=== PATIENT | male | born 1985 | race Caucasian/White ===

== ENCOUNTER 2017-10-08 17:49 | Emergency (ER) | payer OTHER ==
[~2017-10-08] VITALS: Ht 195.6 cm; Wt 93.0 kg
[~2017-10-08 17:49] MED LIST: DILA100C
[2017-10-08 17:57] VITALS: BP 157/77; PULSE 99; RESP 16; TEMP 97.9; O2SAT 97
--- NOTE | 2017-10-08 18:25 | PD ---
HPI Chief Complaint: Respiratory Symptoms Time Seen by Provider: 18:09 Travel History International Travel<30 days: No Contact w/Intl Traveler<30days: No Traveled to known affect area: No History of Present Illness HPI 31-year-old male presents emergency department for evaluation of chest discomfort and shortness of breath that started this morning. 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 Says he wore a protective mask but the mask did not provide adequate coverage and he actually became high off of the fumes. He did not come to the ED this morning because he felt too 'high' to drive. He presents now with the sensation of 'burning' in his chest with associated shortness of breath. Says he has not improved but denies worsening of his condition. Denies chronic medical issues or complaints. PFSH Past Medical History Medical History: Denies Significant Hx Blood Disorders: No Cancer: No Cardiovascular Problems: No Chemotherapy: No Diminished Hearing: No Endocrine: No Gastrointestinal Disorders: Yes Genitourinary: No Headaches: Yes Immune Disorder: No Musculoskeletal: No Psychiatric: No Respiratory: No Immunizations Current: Yes Radiation Therapy: No Seizures: Yes Tetanus Vaccination: < 5 Years Influenza Vaccination: No Past Surgical History Surgical History: No Previous Surgery AICD: No Joint Replacement: No Pacemaker: No Social History Alcohol Use: No Tobacco Use: No (1/2 PPD) Substance Use: No Allergies-Medications (Allergen,Severity, Reaction): Coded Allergies: lactose (Unverified Allergy, Severe, 10/08/17) Reported Meds & Prescriptions Reported Meds & Active Scripts Active Proventil Hfa 6.7 GM Inh (Albuterol Sulfate) 90 Mcg/Act Aer 2 Puff INH Q4-6H PRN Review of Systems Except as stated in HPI: all other systems reviewed are Neg Physical Exam Narrative GENERAL: Well-nourished, well-developed patient, in NAD. chemical odor notable with patient respirations SKIN: Focused skin assessment warm/dry. No rashes or lesions. HEAD: Normocephalic. Atraumatic. EYES: No scleral icterus. No injection or drainage. PERRLA, EOMI THROAT: No pharyngeal injection, exudates, or tonsillar hypertrophy. Airway is patent. NECK: Supple, trachea midline. No JVD or lymphadenopathy. No meningismus. CARDIOVASCULAR: Regular rate and rhythm without murmurs, gallops, or rubs. RESPIRATORY: Breath sounds equal bilaterally. No accessory muscle use. No rales or rhonchi. Occasional wheeze MUSCULOSKELETAL: No cyanosis, or edema. BACK: Nontender without obvious deformity. No CVA tenderness. Data Data Last Documented VS Vital Signs Date Time Temp Pulse Resp B/P (MAP) Pulse Ox O2 Delivery O2 Flow Rate FiO2 10/08/17 18:13 18 98 10/08/17 17:57 97.9 99 157/77 (103) Orders Orders Chest, Pa & Lat (10/08/17 ) Albuterol Neb (Albuterol Neb) (10/08/17 18:30) Dexamethasone Inj (Decadron Inj) (10/08/17 19:15) Ed Discharge Order (10/08/17 19:19) MDM Medical Decision Making Medical Screen Exam Complete: Yes Emergency Medical Condition: Yes Differential Diagnosis Chemical pneumonitis, pneumonia, COPD, infiltrates Narrative Course 31-year-old male presents emergency department for evaluation of chest discomfort and shortness of breath that started this morning. 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 Says he wore a protective mask but the mask did not provide adequate coverage and he actually became high off of the fumes. He did not come to the ED this morning because he felt too 'high' to drive. He presents now with the sensation of 'burning' in his chest with associated shortness of breath. Says he has not improved but denies worsening of his condition. Denies chronic medical issues or complaints. Vital signs are stable. Duo nebs administered without significant improvement. Chest x-ray is suggestive of COPD. Note that patient has smoked previously but does not anymore. Please see Dr. Sandhu's note for further information and disposition. Scripts Albuterol 6.7 GM Inh (Proventil Hfa 6.7 GM Inh) 90 Mcg/Act Aer 2 PUFF INH Q4-6H Y for SHORTNESS OF BREATH, #1 INHALER 0 Refills Prov: Kameron Sandhu MD 10/08/17 Disposition: 01 DISCHARGE HOME Condition: Stable Zenaida Aranda October 08, 2017 18:25
[2017-10-08] MEDS: RESP: ALBUTEROL 2.5 MG/3 ML NEB (SCH) INH ×2 (18:30→18:31)
--- NOTE | 2017-10-08 19:04 | RADRPT ---
EXAM DATE/TIME: 10/08/2017 18:34 [facility] COMPARISON: No previous studies available for comparison. INDICATIONS : Burning sensation in chest after asbestos exposure today. MEDICAL HISTORY : None. SURGICAL HISTORY : None. ENCOUNTER: Initial ACUITY: 1 day PAIN SCORE: 6/10 LOCATION: Bilateral chest FINDINGS: PA and lateral views of the chest demonstrate the lungs to be symmetrically aerated without evidence of mass, infiltrate or effusion. Hyperinflation. The cardiomediastinal contours are unremarkable. O sseous structures are intact. CONCLUSION: Hyperinflation suggesting COPD. No acute infiltrate or effusion. Miguel A Taylor Jr., MD on October 08, 2017 at 19:00 Board Certified Radiologist. This report was verified electronically.
[2017-10-08] MEDS ORDERED: DEXAMETHASONE SOD PHOS 4 MG/ML VIAL IM ONE (19:15)
[2017-10-08] MEDS ORDERED: ALBU6.7H INH (19:17)
--- NOTE | 2017-10-08 19:19 | PD ---
Data Data Last Documented VS Vital Signs Date Time Temp Pulse Resp B/P (MAP) Pulse Ox O2 Delivery O2 Flow Rate FiO2 10/08/17 18:13 18 98 10/08/17 17:57 97.9 99 157/77 (103) Orders Orders Chest, Pa & Lat (10/08/17 ) Albuterol Neb (Albuterol Neb) (10/08/17 18:30) Dexamethasone Inj (Decadron Inj) (10/08/17 19:15) MDM Medical Record Reviewed: Yes Supervised Visit with MADDIE: Yes Narrative Course I, Dr. Sandhu, have reviewed the advance practice practitioner's documentation and am in agreement, met with the patient face to face, made the diagnosis, and the medical decision making was done by me. *My assessment and Findings: Plain film reveals emphysematous type changes however the patient is 31 years old. He reports quitting smoking. 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 His O2 sats are normal. His respiratory rate about 18. His lungs are clear. An element of industrial solvent exposure related dyspnea is of course potentially present. At this point however the patient is considered reasonably safe for discharge home. Return precautions discussed. Strict avoidance of similar/repeat exposure to work environment discussed. Pt voiced agreement. Diagnosis Primary Impression: Industrial fumes exposure Additional Impression: Dyspnea Qualified Codes: R06.00 - Dyspnea, unspecified Referrals: Primary Care Physician call for appointment Med/Other Pt SpecificInfo: Prescription(s) given Scripts Albuterol 6.7 GM Inh (Proventil Hfa 6.7 GM Inh) 90 Mcg/Act Aer 2 PUFF INH Q4-6H Y for SHORTNESS OF BREATH, #1 INHALER 0 Refills Prov: Kameron Sandhu MD 10/08/17 Disposition: 01 DISCHARGE HOME Condition: Stable Kameron Sandhu MD October 08, 2017 19:19
== END 2017-10-08 19:40 | disposition home or self-care (01) ==
LOC: PHEFT 17:49
DX: R06.00 Dyspnea, unspecified (principal); R56.9 Unspecified convulsions; Z57.5 Occupational exposure to toxic agents in other industries
CPT/HCPCS: 71046; 94640; 94664; 96372; 99283; J1100; J7613